=== PATIENT | male | born 1980 | race Caucasian/White ===

== ENCOUNTER 2019-05-19 11:21 | Emergency (ER) | payer SELFPAY ==
[2019-05-19 11:36] VITALS: BP 123/82; PULSE 70; TEMP 98; BMI 26.6
--- NOTE | 2019-05-19 12:28 | PDOC ---
History of Present Illness - General Chief Complaint: Pain Stated Complaint: CHEST PAIN Time Seen by Provider: 05/19/19 12:25 History Source: Patient - History of Present Illness Initial Comments: 05/19/19 13:38 Chief complaint: Left breast pain Patient is a healthy 39-year-old male with 1 day of left breast pain. He states that his breast hurts when he presses it. Patient denies any particular injury or precipitating event. Patient has no shortness of breath any other chest pain, no fever and otherwise feels well. GENERAL/CONSTITUTIONAL: No fever, weakness. dizziness HEAD, EYES, EARS, NOSE AND THROAT: No change in vision. No ear pain or discharge. No sore throat. CARDIOVASCULAR: No chest pain RESPIRATORY: No shortness of breath or cough GASTROINTESTINAL: No pain, nausea, vomiting, diarrhea or constipation GENITOURINARY: No dysuria MUSCULOSKELETAL: No neck or back pain SKIN: No rash, + left breast pain NEUROLOGIC: No headache, vertigo, loss of consciousness, or loss of sensation. GENERAL: The patient is awake, alert, and fully oriented, in no acute distress. HEAD: Normal with no signs of trauma. EYES: Pupils equal, round and reactive to light, sclera anicteric, conjunctiva clear. ENT: pharynx: no erythema, no exudate, uvula midline NECK: supple CHEST: clear, right breast nontender, left breast no signs of gross swelling or erythema but very point tender in the inferior lateral aspect without signs of infection or discharge. There is no other areas of pain or tenderness to the chest, rr ABD: soft, nontender BACK: no tenderness or signs of injury EXTREMITIES: Normal range of motion, no edema. NEUROLOGICAL: Normal speech, normal gait. SKIN: Warm, Dry Past History - Past Medical History Allergies/Adverse Reactions: Allergies Allergy/AdvReac Type Severity Reaction Status Date / Time No Known Allergies Allergy Verified 05/19/19 11:36 COPD: No - Psycho Social/Smoking Cessation Hx Smoking History: Never smoked Hx Alcohol Use: No Drug/Substance Use Hx: No *Physical Exam - Vital Signs Last Vital Signs Temp Pulse Resp BP Pulse Ox 98.0 F 70 16 123/82 97 05/19/19 11:33 05/19/19 11:33 05/19/19 11:33 05/19/19 11:33 05/19/19 11:33 Heart Score/ECG Review - ECG Intrepretation Comment:: 05/19/19 13:40 11:25 AM normal sinus rhythm at 78, QTc 414, no ST or T wave changes, normal EKG. Done in triage. Medical Decision Making - Medical Decision Making 05/19/19 13:42 Healthy 39-year-old male with 1 day of left breast pain, focal tenderness, no signs of infection no other symptoms that would be consistent otherwise then localized skin, muscle/breast tissue pain. There is no clinical symptoms consistent with CAD, ACS, PE or other concerning medical conditions. Patient is aware that he needs to further evaluation even though he is a man to ensure this is not cancer. He will follow-up at [facility] which is part of the [facility] cancer screening program as he has no primary care doctor Discussed issues, findings, results, applicable medications and treatments and follow-up. All these were understood and all questions were answered Discharge - Discharge Information Problems reviewed: Yes Clinical Impression/Diagnosis: Breast pain, left Condition: Stable Disposition: HOME - Admission No - Follow up/Referral - Patient Discharge Instructions Additional Instructions: It is not clear what is causing your pain and swelling, but it is very important that you follow up with the doctor and have a mammogram and ultrasound. You must ensure that this is not cancer. You can follow up at the following health care center and they will help you get tested. Tell them you are in the emergency department and bring this document that says you need a mammogram and ultrasound. [facility]: [address] [place] [address] Return to the emergency room if you have a fever, more swelling, redness or if this gets worse or if you feel sicker. You can take Motrin 600 mg every 6 hours for pain. No est shona qu est causando el dolor y la hinchazn, ragini es muy importante que sarah un seguimiento con el mdico y se sarah tanja mamografa y tanja ecografa. Debe asegurarse de que esto no sea cncer. Puede realizar un seguimiento en el siguiente centro de atencin mdica y ellos lo ayudarn a hacerse la prueba. Dgales que est en el departamento de emergencias y presente jina documento que dice que necesita tanja mamografa y tanja ecografa. Centros de pura del belinda Enriquez: [facility] de pura [address] [place] [address] Regrese a la benjamin de emergencias si tiene fiebre, ms hinchazn, enrojecimiento o si esto empeora o si se siente ms enfermo. Puede cristi Motrin 600 mg cada 6 horas para el dolor. - Post Discharge Activity
--- NOTE | 2019-05-20 10:15 | EKG ---
Test Reason : Blood Pressure : / mmHG Vent. Rate : 078 BPM Atrial Rate : 078 BPM P-R Int : 152 ms QRS Dur : 116 ms QT Int : 364 ms P-R-T Axes : 001 083 039 degrees QTc Int : 414 ms NORMAL SINUS RHYTHM NORMAL ECG NO PREVIOUS ECGS AVAILABLE Confirmed by NITA DAVENPORT MD ([id number]) on 05/20/2019 10:14:37 AM Referred By: Confirmed By:NITA DAVENPORT MD
== END 2019-05-19 12:55 | disposition home or self-care (01) ==
LOC: JERFT 11:21
DX: N64.4 Mastodynia (principal)
CPT/HCPCS: 93005; 93010; 99281-25